=== PATIENT | male | born 1990 | race Caucasian/White ===

== ENCOUNTER 2020-04-22 | Emergency (ER) | payer BC ==
[2020-04-22 00:06] VITALS: BP 166/90; PULSE 84; RESP 20; TEMP 98.6
[2020-04-22] MEDS ORDERED: methylPREDNISolone SOD SUCCI 125 MG/2 ML VIAL IM STA (00:23)
[2020-04-22] MEDS ORDERED: FAMOTIDINE 20 MG TAB PO STA (00:23)
[2020-04-22] MEDS ORDERED: diphenhydrAMINE 50 MG CAP PO STA (00:23)
--- NOTE | 2020-04-22 00:25 | ED ---
General Adult HPI - General Chief complaint: Skin/Abscess/Foreign Body Stated complaint: Hives Time Seen by Provider: 04/22/20 00:11 Source: patient, RN notes reviewed Mode of arrival: ambulatory Limitations: no limitations - History of Present Illness Initial comments: 29-year-old male presents to the emergency department for a chief complaint of hives. Patient states this afternoon about 9 hours ago patient developed hives on his arms. States they then spread to his back and sides as well as his chest. Patient reports they're itchy. Patient states he thinks it could be due to his work uniform as this did start after he put it on. Patient reports he has worn these for quite some time however they are washed by another company and he is unsure if these different detergent. Patient denies eating any new foods or starting any new medications. He denies any swelling of the lips tongue or throat or shortness of breath.Patient has no other complaints at this time including shortness of breath, chest pain, abdominal pain, nausea or vomiting, headache, or visual changes. - Related Data Previous Rx's Medication Instructions Recorded Famotidine [Pepcid] 20 mg PO BID #28 tablet 07/01/15 diphenhydrAMINE [Benadryl] 50 mg PO QID PRN #20 capsule 07/01/15 methylPREDNISolone [Medrol Dose 4 mg PO DIRECTED #1 pack 07/01/15 Pack] Loratadine [Claritin] 10 mg PO DAILY #20 tab 04/22/20 diphenhydrAMINE HCL [Benadryl] 50 mg PO Q6H PRN #20 tab 04/22/20 predniSONE 50 mg PO DAILY #5 tablet 04/22/20 Allergies Allergy/AdvReac Type Severity Reaction Status Date / Time No Known Allergies Allergy Verified 04/22/20 00:06 Review of Systems ROS Statement: Those systems with pertinent positive or pertinent negative responses have been documented in the HPI. ROS Other: All systems not noted in ROS Statement are negative. Past Medical History Additional Past Medical History / Comment(s): nosebleeds History of Any Multi-Drug Resistant Organisms: None Reported Past Surgical History: Tonsillectomy Past Psychological History: Anxiety Smoking Status: Former smoker Past Alcohol Use History: Occasional Past Drug Use History: None Reported General Exam Limitations: no limitations General appearance: alert, in no apparent distress Head exam: Present: atraumatic, normocephalic, normal inspection Eye exam: Present: normal appearance, PERRL, EOMI. Absent: scleral icterus, conjunctival injection, periorbital swelling ENT exam: Present: normal exam, normal oropharynx, mucous membranes moist, normal external ear exam, other (No evidence of angioedema. No swelling of the lips tongue or throat.) Neck exam: Present: normal inspection, full ROM. Absent: tenderness, meningismus, lymphadenopathy Respiratory exam: Present: normal lung sounds bilaterally. Absent: respiratory distress, wheezes, rales, rhonchi, stridor Cardiovascular Exam: Present: regular rate, normal rhythm, normal heart sounds. Absent: systolic murmur, diastolic murmur, rubs, gallop, clicks GI/Abdominal exam: Present: soft, normal bowel sounds. Absent: distended, tenderness, guarding, rebound, rigid Skin exam: Present: urticaria (Patient has raised plaques consistent with urticaria noted on the back sides and chest.) Course Vital Signs 04/22/20 00:03 Temperature 98.6 F Pulse Rate 84 Respiratory 20 Rate Blood Pressure 166/90 O2 Sat by Pulse 97 Oximetry Medical Decision Making - Medical Decision Making Patient presents with urticaria. No swelling of the lips tongue or throat or shortness of breath. Patient is taken 10 ml children's Benadryl 6 hours ago but otherwise has not had any other medications. Patient was treated with steroids and Benadryl. Discussed instructions on taking these medications were discussed returning for any worsening symptoms. Disposition Clinical Impression: Urticaria Disposition: HOME SELF-CARE Condition: Good Instructions (If sedation given, give patient instructions): Urticaria (ED) Additional Instructions: Please take steroid as directed starting tomorrow. Take Benadryl as needed. If you're working or needed to drive take Claritin instead of Benadryl. For any worsening symptoms such as swelling of the lips tongue or throat return to the emergency room. Prescriptions: diphenhydrAMINE HCL [Benadryl] 50 mg PO Q6H PRN #20 tab PRN Reason: Allergic Reaction Loratadine [Claritin] 10 mg PO DAILY #20 tab predniSONE 50 mg PO DAILY #5 tablet Is patient prescribed a controlled substance at d/c from ED?: No Referrals: Davie Christopher MD [REFERRING] - 1-2 days Time of Disposition: 00:23
== END 2020-04-22 00:37 | disposition home or self-care (01) ==
LOC: EC
DX: L50.9 Urticaria, unspecified (principal); Z87.891 Personal history of nicotine dependence
CPT/HCPCS: 96372; 99283